=== PATIENT | male | born 1970 | race Caucasian/White ===

== ENCOUNTER 2022-08-09 16:35 | Inpatient (IN) | payer OTHER ==
[2022-08-09] MEDS ORDERED: guaiFENesin 200 MG/10 ML 10 ML UNIT-DOSE CUPS PO PRN (22:27)
[2022-08-09] MEDS ORDERED: MAG HYDROX/AL HYDROX/SIMETH 30 ML UNIT-DOSE CUP PO PRN (22:27)
[2022-08-09] MEDS ORDERED: IBUPROFEN 400 MG TABLET (FP) PO PRN (22:27)
[2022-08-09] MEDS ORDERED: NICOTINE POLACRILEX 2 MG GUM BC PRN (22:27)
[2022-08-09] MEDS ORDERED: hydrOXYzine PAMOATE 25 MG CAPSULE (FP) PO PRN (22:27)
[2022-08-09] MEDS ORDERED: LOPERAMIDE HCL 2 MG CAPSULE PO PRN (22:27)
[2022-08-09] MEDS ORDERED: P-EPHED 60MG/TRIPROLIDI 2.5MG TABLET PO PRN (22:27)
[2022-08-09] MEDS ORDERED: MAGNESIUM HYDROX 2400MG/30ML ORAL SUSPENSION 30 ML CUP PO PRN (22:27)
[2022-08-09] MEDS ORDERED: MAGNESIUM CITRATE 300 ML BOTTLE PO PRN (22:27)
[2022-08-09] MEDS ORDERED: ACETAMINOPHEN 325 MG TABLET (FP) PO PRN (22:27)
[2022-08-09 22:32] VITALS: BMI 20.7
[2022-08-10 01:00] VITALS: RESP 20
[2022-08-10] MEDS: MELATONIN 5 MG TABLETS PO SCH ×2 (01:00→21:56)
[2022-08-10] MEDS ORDERED: TUBERCULIN PPD 5 TU/0.1ML VIAL ID ONE (07:12)
[2022-08-10 09:43] LABS: HEMATOCRIT 38.8 % (35.4-49); HEMOGLOBIN 13.3 GM/dL (11.7-16.9); MCH 30.3 pg (25.7-33.7); MCHC 34.3 g/dl (32.0-35.9); MEAN CELL VOLUME 88.3 fl (80-96); PLATELET COUNT 238 10^3/uL (134-434); RBC 4.39 M/mm3 (4.00-5.60); RDW 16.3 % (11.9-15.9); WHITE BLOOD COUNT 6.3 K/mm3 (4.0-10.0)
[2022-08-10 10:06] LABS: CALCIUM 8.8 mg/dL (8.5-10.1)
[2022-08-10 10:11] LABS: CREATININE 0.9 mg/dL (0.55-1.3)
[2022-08-10] MEDS: NICOTINE 14 MG/24 HOURS TOPICAL PATCH TD SCH (10:11)
[2022-08-10] MEDS: PRENATAL VITAMINS W/ FOLIC ACID TABLET (FP) PO SCH (10:11)
[2022-08-10 10:12] LABS: BILIRUBIN,TOTAL 0.4 mg/dL (0.2-1); TOT PROT 5.9 g/dl (6.4-8.2)
[2022-08-10 10:38] LABS: SYPHILIS W/ RPR CONF NON-REACTIVE (NONREACTIVE)
[2022-08-10 21:32] LABS: URINE APPEARANCE CLEAR; URINE BILIRUBIN NEGATIVE (NEGATIVE); URINE COLOR YELLOW; URINE GLUCOSE (UA) NEGATIVE (NEGATIVE); URINE KETONE NEGATIVE (NEGATIVE); URINE LEUK ESTERASE NEGATIVE (NEGATIVE); URINE NITRITE NEGATIVE (NEGATIVE); URINE PROTEIN NEGATIVE (NEGATIVE)
[2022-08-10] MEDS ORDERED: THIAMINE HCL 100 MG TABLET (FP) PO SCH (22:00)
[2022-08-11 06:40] VITALS: BP 157/76; PULSE 67; TEMP 96.9
[2022-08-11] MEDS: PRENATAL VITAMINS W/ FOLIC ACID TABLET (FP) PO SCH (10:07)
[2022-08-11] MEDS: NICOTINE 14 MG/24 HOURS TOPICAL PATCH TD SCH (10:07)
== END 2022-08-11 15:29 | disposition left against medical advice (07) | DRG 770 ==
LOC: YASAS 16:35 → Y3E 08-10 00:30
PROVIDERS: ADMIT Psychiatry & Neurology Pain Medicine; ATTEND Surgery
PROC: HZ2ZZZZ Detoxification Services for Substance Abuse Treatment (ICD-10-PCS; principal; 2022-08-10)
DX: F14.20 Cocaine dependence, uncomplicated (principal); F12.20 Cannabis dependence, uncomplicated; F17.210 Nicotine dependence, cigarettes, uncomplicated; F19.24 Other psychoactive substance dependence with psychoactive substance-induced mood disorder; Z59.01 Sheltered homelessness
CPT/HCPCS: 36415; 80053; 81003; 85027; 86780; 86803; 93005; 93010; C9803-CS; U0003; U0005